=== PATIENT | male | born 1950 | race Caucasian/White ===

== ENCOUNTER 2017-12-18 12:04 | Inpatient (IN) | payer OTHER ==
[~2017-12-18] VITALS: Ht 180.3 cm; Wt 102.6 kg
[~2017-12-18 12:04] MED LIST: ALBUMIN (HUMAN) 25% 50 ML IV ONE; AMINOCAPROIC ACID 250 MG/ML 20 ML VIAL IV ONE; CALCIUM CHLORIDE 100 MG/ML 10 ML SYG IVP ONE; HEPARIN SODIUM 10000 UNIT/ML 1ML VIAL IJ ONE; HEPARIN SODIUM 1000UNIT/ML 10ML VIAL IV ONE; MAGNESIUM SULFATE 1 GM/2 ML VIAL IM ONE; MANNITOL 25% 50ML VIAL IV ONE; PHENYLEPHRINE HCL 10 MG/ML 1ML VIAL IV ONE; SODIUM BICARB 8.4% 50ML SYRINGE IVP ONE
[2017-12-18 13:01] LABS: BASOPHILS % (AUTO) 0.9 % (0.0-5.0); EOSINOPHILS % (AUTO) 3.6 % (0.0-8.0); HEMATOCRIT 44.6 % (42-54); LYMPHOCYTES % (AUTO) 18.2 % (21.0-51.0); MEAN CORPUSCULAR HEMOGLOBIN 29.9 pg (27.0-33.0); MEAN CORPUSCULAR HGB CONC 34.5 g/dL (32.0-36.0); MEAN CORPUSCULAR VOLUME 86.7 fL (79-99); MONOCYTES % (AUTO) 10.7 % (3.0-13.0); NEUTROPHILS % (AUTO) 66.6 % (40.0-77.0); NUCLEATED RED BLOOD CELLS 0.1 % (0.0-0.19); PLATELET COUNT (AUTO) 252 K/uL (130-400); RED BLOOD CELL COUNT(AUTO) 5.15 MIL/uL (4.50-6.20); RED CELL DISTRIBUTION WIDTH 13.2 % (11.0-15.5); WHITE BLOOD COUNT (AUTO) 8.7 K/uL (4.8-10.8)
[2017-12-18 13:11] LABS: CREATININE 1.3 mg/dL (0.5-1.5); POTASSIUM 3.7 mmol/L (3.5-5.1)
[2017-12-18 13:14] LABS: PARTIAL THROMBOPLASTIN TIME 29.5 SEC (26.3-35.5); PROTHROMBIN TIME 10.5 SEC (9.6-11.6)
[2017-12-18] MEDS ORDERED: ASPIRIN 325 MG TABLET ONE (13:18)
[2017-12-18] MEDS ORDERED: SODIUM CHLORIDE 0.9% 500ML 500 ML IV ONE (13:19)
[2017-12-18 13:22] LABS: ALBUMIN 3.7 g/dL (3.5-5.0); BILIRUBIN,TOTAL 1.2 mg/dL (0.2-1.0); TOTAL PROTEIN, SERUM 7.3 g/dL (6.0-8.3)
[2017-12-18] MEDS: SODIUM CHLORIDE 0.9% 1000ML 1,000 ML IV SCH (16:00)
[2017-12-18 17:56] VITALS: BP 122/77
[2017-12-18 18:00] VITALS: BP 122/77
[2017-12-18 19:50] VITALS: BP 121/79
[2017-12-18 23:59] VITALS: BP 129/72
[2017-12-19] VITALS (13 sets, daily range): BP systolic 101–136; BP diastolic 63–89
[2017-12-19 03:36] LABS: BASOPHILS % (AUTO) 0.5 % (0.0-5.0); EOSINOPHILS % (AUTO) 2.9 % (0.0-8.0); HEMATOCRIT 43.6 % (42-54); LYMPHOCYTES % (AUTO) 18.1 % (21.0-51.0); MEAN CORPUSCULAR HEMOGLOBIN 28.9 pg (27.0-33.0); MEAN CORPUSCULAR HGB CONC 33.3 g/dL (32.0-36.0); MEAN CORPUSCULAR VOLUME 86.8 fL (79-99); MONOCYTES % (AUTO) 9.5 % (3.0-13.0); PLATELET COUNT (AUTO) 214 K/uL (130-400); RED BLOOD CELL COUNT(AUTO) 5.02 MIL/uL (4.50-6.20); RED CELL DISTRIBUTION WIDTH 13.2 % (11.0-15.5)
[2017-12-19 03:51] LABS: ALBUMIN 3.3 g/dL (3.5-5.0); BILIRUBIN,TOTAL 1.2 mg/dL (0.2-1.0); CREATININE 1.2 mg/dL (0.5-1.5); TOTAL PROTEIN, SERUM 6.6 g/dL (6.0-8.3)
[2017-12-19] MEDS: SODIUM CHLORIDE 0.9% 1000ML 1,000 ML IV SCH ×2 (06:43→18:40)
[2017-12-19] MEDS: ATORVASTATIN CALCIUM 20 MG TABLET PO SCH (09:00)
[2017-12-19] MEDS: ASPIRIN 81MG TAB.CHEW PO SCH (09:00)
[2017-12-19] MEDS ORDERED: PANTOPRAZOLE SODIUM 40 MG TABLET.DR PO SCH (09:00)
[2017-12-19] MEDS ORDERED: ENOXAPARIN SODIUM 40 MG/0.4 ML SYRINGE SQ SCH (09:00)
[2017-12-19] MEDS ORDERED: LIDOCAINE HCL-MPF 2% 5ML VIAL ONE (11:59)
[2017-12-19] MEDS ORDERED: IOHEXOL-350 50ML VIAL IV ONE (11:59)
[2017-12-19] MEDS ORDERED: IOHEXOL 350 MG/ML 100ML INFUS..BTL IV ONE ×2 (11:59→13:40)
[2017-12-19] MEDS ORDERED: NITROGLYCERIN 5 MG/ML 10 ML VIAL IV ONE (11:59)
[2017-12-19] MEDS ORDERED: BIVALIRUDIN 250 MG/VIAL IV ONE (12:02)
[2017-12-19] MEDS ORDERED: MIDAZOLAM HCL 1 MG/ML 2ML VIAL ONE (12:51)
[2017-12-19] MEDS ORDERED: HEPARIN SODIUM 1000UNIT/ML 10ML VIAL ONE (13:08)
[2017-12-19] MEDS ORDERED: SODIUM CHLORIDE 0.9% 1000ML 1,000 ML IV SCH (13:54)
[2017-12-19] MEDS ORDERED: ACETAMINOPHEN-CODEINE 300/30MG TAB PO PRN ×2 (14:00)
[2017-12-19] MEDS ORDERED: CHOL200013 PO (14:56)
[2017-12-19] MEDS ORDERED: VITA1CAP85 PO (14:56)
[2017-12-19] MEDS ORDERED: TRIA15OI6 TP (14:56)
[2017-12-19] MEDS ORDERED: ATOR10 PO (14:56)
[2017-12-19] MEDS ORDERED: MELO-108 PO (14:56)
[2017-12-19] MEDS ORDERED: DOCU100C33 PO (14:56)
[2017-12-19 18:52] LABS: HEMOGLOBIN A1C 6.5 % (4.0-6.0)
[2017-12-19] MEDS ORDERED: MAGNESIUM HYDROXIDE 30 ML/UDCUP ONE (23:27)
[2017-12-19] MEDS ORDERED: MAGNESIUM HYDROXIDE 30 ML/UDCUP PO PRN (23:30)
[2017-12-20] VITALS (26 sets, daily range): BP systolic 95–179; BP diastolic 52–99
[2017-12-20 03:25] LABS: HEMATOCRIT 43.3 % (42-54); MEAN CORPUSCULAR HEMOGLOBIN 29.7 pg (27.0-33.0); MEAN CORPUSCULAR HGB CONC 34.2 g/dL (32.0-36.0); MEAN CORPUSCULAR VOLUME 86.9 fL (79-99); PLATELET COUNT (AUTO) 233 K/uL (130-400); RED BLOOD CELL COUNT(AUTO) 4.98 MIL/uL (4.50-6.20); RED CELL DISTRIBUTION WIDTH 13.1 % (11.0-15.5); WHITE BLOOD COUNT (AUTO) 9.5 K/uL (4.8-10.8)
[2017-12-20 03:38] LABS: INR 1.02 (0.85-1.15); PARTIAL THROMBOPLASTIN TIME 28.9 SEC (26.3-35.5); PROTHROMBIN TIME 10.7 SEC (9.6-11.6)
[2017-12-20 03:39] LABS: CREATININE 1.2 mg/dL (0.5-1.5); POTASSIUM 3.9 mmol/L (3.5-5.1)
[2017-12-20] MEDS ORDERED: CEFUROXIME SODIUM 1.5 GM VIAL IVP PRN (07:00)
[2017-12-20] MEDS ORDERED: OCTYL 2-CYANOACRYLATE 1 EACH TP ONE (07:03)
[2017-12-20] MEDS ORDERED: BACITRACIN 50,000 UNIT VIAL ONE (07:03)
[2017-12-20] MEDS ORDERED: ROCURONIUM BROMIDE 10MG/1ML 5ML VL ONE (07:06)
[2017-12-20] MEDS ORDERED: NITROGLYCERIN 50 MG/D5% WATER 1 BOT ONE (07:06)
[2017-12-20] MEDS ORDERED: THROMBIN-JMI 5000 UNIT/VIAL TP ONE (07:18)
[2017-12-20] MEDS ORDERED: DELNIDO FORMULA 1 BAG IV ONE (07:19)
[2017-12-20] MEDS ORDERED: POTASSIUM CHLORIDE 20MEQ/100ML 100 ML IV ONE (07:19)
[2017-12-20] MEDS ORDERED: SODIUM BICARB 50MEQ 50ML VIAL ONE ×3 (07:54→12:32)
[2017-12-20] MEDS ORDERED: LIDOCAINE PF 2% 5ML ABBOJECT ONE (07:54)
[2017-12-20] MEDS ORDERED: NOREPINEPHRINE BITARTRATE 1 MG/1 ML ML IV ONE ×2 (07:54→08:53)
[2017-12-20] MEDS ORDERED: AMINOCAPROIC ACID 250 MG/ML 20 ML VIAL IV ONE (07:54)
[2017-12-20] MEDS ORDERED: HEPARIN SODIUM 1000UNIT/ML 10ML VIAL ONE (07:54)
[2017-12-20] MEDS ORDERED: ESMOLOL HCL 10 MG/ML 10 ML VIAL ONE (07:54)
[2017-12-20] MEDS ORDERED: EPINEPHRINE 1 MG/ML AMPULE ONE (07:54)
[2017-12-20] MEDS ORDERED: MIDAZOLAM HCL 1 MG/ML 5ML VIAL ONE (07:55)
[2017-12-20] MEDS ORDERED: NEOSTIGMINE 5MG/5ML SYR IV ONE (07:55)
[2017-12-20] MEDS ORDERED: FENTANYL CITRATE PF 50 MCG/1 ML 20ML VIAL IJ ONE (07:55)
[2017-12-20] MEDS ORDERED: PROPOFOL 10 MG/ML 20ML VIAL IV ONE (07:55)
[2017-12-20] MEDS: SODIUM CHLORIDE 0.9% 1000ML 1,000 ML IV SCH (08:07)
[2017-12-20] MEDS ORDERED: VITA1CAP85 PO (08:16)
[2017-12-20] MEDS ORDERED: ATOR40TA71 PO (08:18)
[2017-12-20] MEDS ORDERED: TRIA80OI15 TP (08:22)
[2017-12-20] MEDS ORDERED: CHOL100034 PO (08:24)
[2017-12-20] MEDS ORDERED: TYL3 PO (08:25)
[2017-12-20] MEDS ORDERED: METHYLPREDNISOLONE SOD SUCC 1,000 MG/8 ML ML IV ONE (08:53)
[2017-12-20] MEDS ORDERED: ROCURONIUM 10MG/1ML SYR 10 MG/ML ML ONE (08:59)
[2017-12-20] MEDS: ASPIRIN 81MG TAB.CHEW PO SCH (09:00)
[2017-12-20] MEDS: ATORVASTATIN CALCIUM 20 MG TABLET PO SCH (09:00)
[2017-12-20 09:05] LABS: ABG BASE EXCESS -2.9 mmol/L (-2.0-3.0); ABG HCO3 22.1 mmol/L (21.0-28.0); ABG PCO2 39 mmHg (35-48)
[2017-12-20] MEDS: AMBU PUMP 1 EACH EACH MISC SCH ×2 (10:15→12:45)
[2017-12-20] MEDS ORDERED: SODIUM CHLORIDE 0.9% 500ML 500 ML IV SCH (11:12)
[2017-12-20] MEDS ORDERED: CALCIUM GLUCONATE 1 GM in SODIUM CHLORIDE 0.9% 50 ML IV PRN (11:15)
[2017-12-20] MEDS ORDERED: NITROGLYCERIN 50 MG/D5% WATER 250 BOT IV SCH (11:15)
[2017-12-20] MEDS ORDERED: SODIUM CHLORIDE 0.9% 250 ML IV PRN (11:15)
[2017-12-20] MEDS ORDERED: TRAMADOL HCL 50 MG TABLET PO PRN (11:15)
[2017-12-20] MEDS ORDERED: SODIUM CHLORIDE 0.9% 1000ML 1,000 ML IV SCH (11:15)
[2017-12-20] MEDS ORDERED: ACETAMINOPHEN 650 MG SUPPOSITORY RC PRN (11:15)
[2017-12-20] MEDS ORDERED: ONDANSETRON HCL 4 MG/2 ML VIAL IV PRN (11:15)
[2017-12-20] MEDS ORDERED: POTASSIUM PHOS 15 mMOL+NS250ML 250 ML IV PRN (11:15)
[2017-12-20] MEDS ORDERED: MORPHINE SULFATE 2 MG/ML 1ML SYG IV PRN (11:15)
[2017-12-20] MEDS ORDERED: GLUCAGON 1MG KIT 1 MG ML IM PRN (11:15)
[2017-12-20] MEDS ORDERED: MAGNESIUM 2GM PREMIX 50ML 50 ML IV PRN (11:15)
[2017-12-20] MEDS ORDERED: AMINOCAPROIC ACID 15,000 MG in SODIUM CHLORIDE 0.9% 250 ML IV SCH (11:15)
[2017-12-20] MEDS ORDERED: NOREPINEPHRINE 4MG/NS 250ML 250 ML IV PRN (11:15)
[2017-12-20] MEDS ORDERED: EPINEPHRINE 8 MG in SODIUM CHLORIDE 0.9% 250 ML IV PRN (11:15)
[2017-12-20] MEDS ORDERED: SODIUM CHLORIDE 0.9% 10 ML VIAL IVP PRN (11:15)
[2017-12-20] MEDS ORDERED: ALBUMIN (HUMAN) 5% 250 ML IV PRN (11:15)
[2017-12-20] MEDS ORDERED: PROPOFOL 1000 MG/100 ML 100 ML IV PRN (11:15)
[2017-12-20] MEDS ORDERED: MORPHINE SULFATE 4 MG/1ML SYG IV PRN (11:15)
[2017-12-20] MEDS ORDERED: DEXTROSE 50%-WATER 50 ML DISP.SYRIN IV PRN (11:15)
[2017-12-20 11:23] LABS: ABG BASE EXCESS 2.4 mmol/L (-2.0-3.0); ABG HCO3 26.8 mmol/L (21.0-28.0); ABG OXYGEN SATURATION 98.7 % (95.0-99.0); ABG PCO2 41 mmHg (35-48)
[2017-12-20 11:51] LABS: ABG BASE EXCESS -5.7 mmol/L (-2.0-3.0); ABG HCO3 20.1 mmol/L (21.0-28.0); ABG OXYGEN SATURATION 98.1 % (95.0-99.0); ABG PCO2 40 mmHg (35-48)
[2017-12-20] MEDS ORDERED: AMIODARONE HCL 50 MG/ML 3 ML VIAL ONE (11:51)
[2017-12-20] MEDS ORDERED: PROTAMINE SULFATE 10 MG/ML 5 ML VIAL ONE ×2 (11:53→12:03)
[2017-12-20] MEDS ORDERED: PROTAMINE SULFATE 10 MG/ML 25ML VIAL IV ONE (11:55)
[2017-12-20] MEDS ORDERED: MAGNESIUM SULFATE 1 GM/2 ML VIAL ONE (11:57)
[2017-12-20 12:31] LABS: ABG BASE EXCESS -6.3 mmol/L (-2.0-3.0); ABG OXYGEN SATURATION 98.8 % (95.0-99.0); ABG PCO2 37 mmHg (35-48)
[2017-12-20] MEDS ORDERED: EPHEDRINE SULFATE 50 MG/ML AMPULE ONE (12:47)
[2017-12-20 13:11] LABS: HEMATOCRIT 40.5 % (42-54); MEAN CORPUSCULAR HEMOGLOBIN 29.9 pg (27.0-33.0); MEAN CORPUSCULAR VOLUME 87.9 fL (79-99); PLATELET COUNT (AUTO) 220 K/uL (130-400); RED BLOOD CELL COUNT(AUTO) 4.61 MIL/uL (4.50-6.20); WHITE BLOOD COUNT (AUTO) 28.7 K/uL (4.8-10.8)
[2017-12-20 13:22] LABS: CREATININE 1.5 mg/dL (0.5-1.5); MAGNESIUM 3.2 mg/dL (1.80-2.40); PHOSPHORUS 4.7 mg/dL (2.5-4.9); POTASSIUM 3.2 mmol/L (3.5-5.1)
[2017-12-20 13:39] LABS: ABG BASE EXCESS -4.8 mmol/L (-2.0-3.0); ABG HCO3 21.9 mmol/L (21.0-28.0); ABG OXYGEN SATURATION 96.7 % (95.0-99.0); ABG PCO2 46 mmHg (35-48)
[2017-12-20] MEDS: POTASSIUM CHLORIDE 20MEQ/100ML 100 ML IV PRN ×5 (14:01→21:00)
[2017-12-20] MEDS: INSULIN REGULAR, HUMAN 3ML 100 UNIT in SODIUM CHLORIDE 0.9% 99 ML IV SCH ×6 (14:02→23:12)
[2017-12-20] MEDS: SODIUM BICARB 50MEQ 50ML VIAL IV PRN ×4 (14:18→19:55)
[2017-12-20 15:32] LABS: ABG BASE EXCESS -4.7 mmol/L (-2.0-3.0); ABG HCO3 20.5 mmol/L (21.0-28.0); ABG OXYGEN SATURATION 97.3 % (95.0-99.0); ABG PCO2 38 mmHg (35-48)
[2017-12-20 17:29] LABS: ABG BASE EXCESS -3.7 mmol/L (-2.0-3.0); ABG HCO3 20.6 mmol/L (21.0-28.0); ABG OXYGEN SATURATION 97.8 % (95.0-99.0); ABG PCO2 35 mmHg (35-48)
[2017-12-20 19:06] LABS: ABG BASE EXCESS -4.1 mmol/L (-2.0-3.0); ABG HCO3 20.4 mmol/L (21.0-28.0); ABG OXYGEN SATURATION 97.5 % (95.0-99.0); ABG PCO2 36 mmHg (35-48)
[2017-12-20 20:39] LABS: ABG BASE EXCESS 1.3 mmol/L (-2.0-3.0); ABG HCO3 25.6 mmol/L (21.0-28.0); ABG OXYGEN SATURATION 96.8 % (95.0-99.0); ABG PCO2 40 mmHg (35-48)
[2017-12-20] MEDS: CEFUROXIME SODIUM 1.5 GM VIAL IVP SCH (20:40)
[2017-12-20] MEDS: ACETAMINOPHEN 325 MG TAB PO PRN (22:32)
[2017-12-20 23:54] LABS: CREATININE 1.9 mg/dL (0.5-1.5); POTASSIUM 3.3 mmol/L (3.5-5.1)
[2017-12-21] VITALS (24 sets, daily range): BP systolic 102–155; BP diastolic 51–84
[2017-12-21] MEDS: POTASSIUM CHLORIDE 20MEQ/100ML 100 ML IV PRN ×4 (00:10→05:10)
[2017-12-21] MEDS: ACETAMINOPHEN 325 MG TAB PO PRN ×2 (03:43→08:39)
[2017-12-21 04:13] LABS: HEMATOCRIT 39.2 % (42-54); MEAN CORPUSCULAR HEMOGLOBIN 29.5 pg (27.0-33.0); MEAN CORPUSCULAR HGB CONC 34.1 g/dL (32.0-36.0); MEAN CORPUSCULAR VOLUME 86.5 fL (79-99); PLATELET COUNT (AUTO) 160 K/uL (130-400); RED BLOOD CELL COUNT(AUTO) 4.54 MIL/uL (4.50-6.20); RED CELL DISTRIBUTION WIDTH 13.5 % (11.0-15.5); WHITE BLOOD COUNT (AUTO) 21.2 K/uL (4.8-10.8)
[2017-12-21 04:26] LABS: INR 1.12 (0.85-1.15); PARTIAL THROMBOPLASTIN TIME 26.7 SEC (26.3-35.5); PROTHROMBIN TIME 11.7 SEC (9.6-11.6)
[2017-12-21 04:28] LABS: CREATININE 1.6 mg/dL (0.5-1.5); MAGNESIUM 2.2 mg/dL (1.80-2.40); PHOSPHORUS 2.2 mg/dL (2.5-4.9); POTASSIUM 3.7 mmol/L (3.5-5.1)
[2017-12-21] MEDS: TRAMADOL HCL 50 MG TABLET PO PRN ×2 (05:03)
[2017-12-21] MEDS: PANTOPRAZOLE SODIUM 40 MG TABLET.DR PO SCH (08:39)
[2017-12-21] MEDS: ASPIRIN 81MG TAB.CHEW PO SCH (08:39)
[2017-12-21] MEDS: ATORVASTATIN CALCIUM 20 MG TABLET PO SCH (08:40)
[2017-12-21] MEDS: CEFUROXIME SODIUM 1.5 GM VIAL IVP SCH ×2 (08:40→20:28)
[2017-12-21] MEDS: AMBU PUMP 1 EACH EACH MISC SCH (10:15)
[2017-12-21] MEDS ORDERED: ACET1TAB15 PO (17:51)
[2017-12-21] MEDS: FUROSEMIDE 20 MG TABLET PO SCH (17:57)
[2017-12-21] MEDS ORDERED: ACETAMINOPHEN WITH CODEINE PO PRN (18:00)
[2017-12-21] MEDS: DEXTROSE 5%-WATER 1,000 ML IV SCH (18:02)
[2017-12-21 18:12] LABS: MAGNESIUM 2.1 mg/dL (1.80-2.40); PHOSPHORUS 3.9 mg/dL (2.5-4.9); POTASSIUM 4.6 mmol/L (3.5-5.1)
[2017-12-21] MEDS: ACETAMINOPHEN-CODEINE 300/30MG TAB PO PRN (20:27)
[2017-12-22] VITALS (13 sets, daily range): BP systolic 110–150; BP diastolic 59–85
[2017-12-22 05:31] LABS: BASOPHILS % (AUTO) 0.1 % (0.0-5.0); HEMATOCRIT 34.4 % (42-54); LYMPHOCYTES % (AUTO) 3.5 % (21.0-51.0); MEAN CORPUSCULAR HEMOGLOBIN 29.8 pg (27.0-33.0); MEAN CORPUSCULAR HGB CONC 33.7 g/dL (32.0-36.0); MEAN CORPUSCULAR VOLUME 88.2 fL (79-99); MONOCYTES % (AUTO) 5.7 % (3.0-13.0); NEUTROPHILS % (AUTO) 90.7 % (40.0-77.0); PLATELET COUNT (AUTO) 102 K/uL (130-400); RED CELL DISTRIBUTION WIDTH 13.5 % (11.0-15.5); WHITE BLOOD COUNT (AUTO) 28.2 K/uL (4.8-10.8)
[2017-12-22 05:37] LABS: CREATININE 1.2 mg/dL (0.5-1.5); MAGNESIUM 2.2 mg/dL (1.80-2.40); POTASSIUM 4.5 mmol/L (3.5-5.1)
[2017-12-22] MEDS: PANTOPRAZOLE SODIUM 40 MG TABLET.DR PO SCH (09:10)
[2017-12-22] MEDS: ACETAMINOPHEN-CODEINE 300/30MG TAB PO PRN ×2 (09:11→16:55)
[2017-12-22] MEDS: ATORVASTATIN CALCIUM 20 MG TABLET PO SCH (09:11)
[2017-12-22] MEDS: FUROSEMIDE 20 MG TABLET PO SCH (09:11)
[2017-12-22] MEDS: DOCUSATE SODIUM 100 MG CAP PO SCH ×2 (09:11→22:06)
[2017-12-22] MEDS: ASPIRIN 81MG TAB.CHEW PO SCH (09:11)
[2017-12-22] MEDS: AMBU PUMP 1 EACH EACH MISC SCH (10:15)
[2017-12-22] MEDS: DEXTROSE 5%-WATER 1,000 ML IV SCH (11:34)
[2017-12-22 16:51] LABS: CREATININE 1.1 mg/dL (0.5-1.5); POTASSIUM 4.2 mmol/L (3.5-5.1)
[2017-12-22] MEDS: GUAIFENESIN-DM 200/20 MG 10 ML PO SCH ×2 (16:55→22:08)
[2017-12-22] MEDS: METOPROLOL TARTRATE 25 MG TAB PO SCH (22:06)
[2017-12-23 03:25] VITALS: BP 136/72
[2017-12-23 03:37] LABS: HEMATOCRIT 35.1 % (42-54); MEAN CORPUSCULAR HGB CONC 33.4 g/dL (32.0-36.0); MEAN CORPUSCULAR VOLUME 86.7 fL (79-99); PLATELET COUNT (AUTO) 85 K/uL (130-400); RED BLOOD CELL COUNT(AUTO) 4.05 MIL/uL (4.50-6.20); RED CELL DISTRIBUTION WIDTH 12.9 % (11.0-15.5); WHITE BLOOD COUNT (AUTO) 19.1 K/uL (4.8-10.8)
[2017-12-23 03:48] LABS: CREATININE 1.1 mg/dL (0.5-1.5); POTASSIUM 4.1 mmol/L (3.5-5.1)
[2017-12-23] MEDS: GUAIFENESIN-DM 200/20 MG 10 ML PO SCH ×4 (04:29→21:22)
[2017-12-23 07:37] LABS: APPEARANCE,URINE Clear (CLEAR); BILIRUBIN,URINE Negative (NEGATIVE); COLOR,URINE Yellow (YELLOW); GLUCOSE, URINE (UA) Negative (NEGATIVE); KETONES,URINE Negative (NEGATIVE); LEUKOCYTE ESTERASE ,URINE Negative (NEGATIVE); NITRATE,URINE Negative (NEGATIVE); OCCULT BLOOD,URINE Small (NEGATIVE); PH,URINE >=9.0 (5.0-8.0); PROTEIN,URINE Negative (NEGATIVE)
[2017-12-23 07:44] LABS: BACTERIA,URINE None Seen /HPF (None Seen); RBC,URINE 0-1 /HPF (0-1); SQUAMOUS EPITHELIAL CELL,UR None Seen /HPF (0-2); WBC,URINE None Seen /HPF (0-1)
[2017-12-23 07:46] VITALS: BP 138/88
[2017-12-23] MEDS: PANTOPRAZOLE SODIUM 40 MG TABLET.DR PO SCH (08:44)
[2017-12-23] MEDS: ATORVASTATIN CALCIUM 20 MG TABLET PO SCH (08:44)
[2017-12-23] MEDS: METOPROLOL TARTRATE 25 MG TAB PO SCH ×2 (08:44→21:22)
[2017-12-23] MEDS: FUROSEMIDE 20 MG TABLET PO SCH (08:44)
[2017-12-23] MEDS: DOCUSATE SODIUM 100 MG CAP PO SCH ×3 (08:44→21:22)
[2017-12-23] MEDS: ASPIRIN 81MG TAB.CHEW PO SCH (08:44)
[2017-12-23] MEDS: POTASSIUM CHLORIDE 20 MEQ ERTAB PO SCH (08:44)
[2017-12-23] MEDS: ACETAMINOPHEN-CODEINE 300/30MG TAB PO PRN ×3 (08:45→23:21)
[2017-12-23] MEDS ORDERED: CHLORDIAZEPOXIDE HCL 25 MG CAP PO SCH (10:15)
[2017-12-23] MEDS ORDERED: LORAZEPAM 2 MG/ML 1 ML VIAL IVP PRN (10:15)
[2017-12-23] MEDS: AMBU PUMP 1 EACH EACH MISC SCH (10:15)
[2017-12-23] MEDS ORDERED: ALPRAZOLAM 0.25 MG TABLET PO PRN (10:15)
[2017-12-23] MEDS: IPRATROPIUM/ALBUTEROL SULFATE 3 ML SOLUTION IH PRN ×2 (11:32→18:54)
[2017-12-23 11:40] VITALS: BP 108/64
[2017-12-23] MEDS: POLYETHYLENE GLYCOL 3350 17 GM POWD.PACK PO PRN (11:45)
[2017-12-23 16:34] VITALS: BP 133/67
[2017-12-23 19:38] VITALS: BP 130/70
[2017-12-23 23:39] VITALS: BP 154/93
[2017-12-24] MEDS: IPRATROPIUM/ALBUTEROL SULFATE 3 ML SOLUTION IH PRN ×2 (01:27→06:18)
[2017-12-24 04:03] VITALS: BP 128/79
[2017-12-24 04:31] LABS: BASOPHILS % (AUTO) 0.2 % (0.0-5.0); EOSINOPHILS % (AUTO) 1.3 % (0.0-8.0); HEMATOCRIT 37.3 % (42-54); LYMPHOCYTES % (AUTO) 14.2 % (21.0-51.0); MEAN CORPUSCULAR HEMOGLOBIN 30.1 pg (27.0-33.0); MEAN CORPUSCULAR HGB CONC 34.6 g/dL (32.0-36.0); MONOCYTES % (AUTO) 8.1 % (3.0-13.0); NEUTROPHILS % (AUTO) 76.2 % (40.0-77.0); PLATELET COUNT (AUTO) 111 K/uL (130-400); RED BLOOD CELL COUNT(AUTO) 4.28 MIL/uL (4.50-6.20); WHITE BLOOD COUNT (AUTO) 14.1 K/uL (4.8-10.8)
[2017-12-24 04:41] LABS: ALBUMIN 3.2 g/dL (3.5-5.0); BILIRUBIN,TOTAL 1.1 mg/dL (0.2-1.0); CREATININE 1.1 mg/dL (0.5-1.5); POTASSIUM 4.2 mmol/L (3.5-5.1); TOTAL PROTEIN, SERUM 6.9 g/dL (6.0-8.3)
[2017-12-24] MEDS: GUAIFENESIN-DM 200/20 MG 10 ML PO SCH ×3 (05:17→16:29)
[2017-12-24] MEDS: ACETAMINOPHEN-CODEINE 300/30MG TAB PO PRN ×2 (05:18→13:51)
[2017-12-24 07:35] VITALS: BP 112/49
[2017-12-24] MEDS: DOCUSATE SODIUM 100 MG CAP PO SCH ×2 (07:48→08:56)
[2017-12-24] MEDS: AMBU PUMP 1 EACH EACH MISC SCH (07:49)
[2017-12-24] MEDS: ATORVASTATIN CALCIUM 20 MG TABLET PO SCH (08:55)
[2017-12-24] MEDS: ASPIRIN 81MG TAB.CHEW PO SCH (08:55)
[2017-12-24] MEDS: METOPROLOL TARTRATE 25 MG TAB PO SCH (08:56)
[2017-12-24] MEDS: POTASSIUM CHLORIDE 20 MEQ ERTAB PO SCH (08:56)
[2017-12-24] MEDS: PANTOPRAZOLE SODIUM 40 MG TABLET.DR PO SCH (08:56)
[2017-12-24] MEDS: FUROSEMIDE 20 MG TABLET PO SCH (08:56)
[2017-12-24] MEDS ORDERED: FOLIC ACID 1 MG TABLET PO SCH (09:00)
[2017-12-24 11:20] VITALS: BP 128/75
[2017-12-24] MEDS: POLYETHYLENE GLYCOL 3350 17 GM POWD.PACK PO PRN (14:50)
[2017-12-24 16:38] VITALS: BP 124/72
[2017-12-24] MEDS ORDERED: PANT40TA PO (17:40)
[2017-12-24] MEDS ORDERED: FOLI1TAB15 PO (17:40)
[2017-12-24] MEDS ORDERED: FURO20TA6 PO (17:40)
[2017-12-24] MEDS ORDERED: METO25 PO (17:40)
[2017-12-24] MEDS ORDERED: DOCU-275 PO (17:40)
[2017-12-24] MEDS ORDERED: POTA20TA12 PO (17:40)
[2017-12-24] MEDS ORDERED: TRAM50TA4 PO (17:42)
== END 2017-12-24 18:35 | disposition home or self-care (01) | DRG 217 ==
LOC: EDH 12:04 → EDHIP 16:00 → 2BH 17:18 → 2CV 12-20 07:53 → 2CH 12-21 06:17 → 2AH 12-22 14:36
PROVIDERS: ADMIT Hospitalist; ATTEND Hospitalist
PROC: 4A023N8 Measurement of Cardiac Sampling and Pressure, Bilateral, Percutaneous Approach (ICD-10-PCS; 2017-12-19)
PROC: B2111ZZ Fluoroscopy of Multiple Coronary Arteries using Low Osmolar Contrast (ICD-10-PCS; 2017-12-19)
PROC: B2151ZZ Fluoroscopy of Left Heart using Low Osmolar Contrast (ICD-10-PCS; 2017-12-19)
PROC: 3E073KZ Introduction of Other Diagnostic Substance into Coronary Artery, Percutaneous Approach (ICD-10-PCS; 2017-12-19)
PROC: B24BZZ4 Ultrasonography of Heart with Aorta, Transesophageal (ICD-10-PCS; 2017-12-19)
PROC: 5A1221Z Performance of Cardiac Output, Continuous (ICD-10-PCS; 2017-12-19)
PROC: 02RF08Z Replacement of Aortic Valve with Zooplastic Tissue, Open Approach (ICD-10-PCS; principal; 2017-12-20 08:40)
DX: I35.0 Nonrheumatic aortic (valve) stenosis (principal); E87.0 Hyperosmolality and hypernatremia; D62 Acute posthemorrhagic anemia; J98.11 Atelectasis; R65.10 Systemic inflammatory response syndrome (SIRS) of non-infectious origin without acute organ dysfunction; E11.9 Type 2 diabetes mellitus without complications; E78.5 Hyperlipidemia, unspecified; I10 Essential (primary) hypertension; I25.10 Atherosclerotic heart disease of native coronary artery without angina pectoris; D69.6 Thrombocytopenia, unspecified; D72.829 Elevated white blood cell count, unspecified; E66.9 Obesity, unspecified; E83.51 Hypocalcemia; G47.30 Sleep apnea, unspecified; K59.00 Constipation, unspecified; I25.2 Old myocardial infarction; Z79.82 Long term (current) use of aspirin; Z79.899 Other long term (current) drug therapy; Z87.891 Personal history of nicotine dependence; Z68.31 Body mass index [BMI] 31.0-31.9, adult; Z91.018 Allergy to other foods
CPT/HCPCS: 36415; 71045; 76882; 76998; 80048; 80053; 80061; 81001; 82435; 82550; 82607; 82803; 82947; 82948; 83036; 83605; 83690; 83735; 83874; 84100; 84132; 84295; 84484; 85018; 85025; 85027; 85347; 85610; 85730; 86850; 86900; 86901; 86922; 87088; 88305; 88311; 93005; 93306; 93460; 93880; 93926; 94002; 94010; 94640; 94664; 97039; 99156; 99157; A4218; A7048; C1769; C1893; C1894; J0171; J0282; J0583; J0610; J0697; J1644; J1650; J1815; J2001; J2150; J2250; J2370; J2405; J2704; J2710; J2720; J2930; J3010; J3475; J3480; J3490; J7030; J7040; P9047; Q9967

== ENCOUNTER 2018-02-02 14:35 | Emergency (ER) | payer OTHER ==
[~2018-02-02 14:35] MED LIST changes: -ALBUMIN (HUMAN) 25% 50 ML IV ONE; -AMINOCAPROIC ACID 250 MG/ML 20 ML VIAL IV ONE; +ATOR40TA71 PO; -CALCIUM CHLORIDE 100 MG/ML 10 ML SYG IVP ONE; +CHOL100034 PO; +CHOL200013 PO; +DOCU-275 PO; +DOCU100C33 PO; +FOLI1TAB15 PO; +FURO20TA6 PO; -HEPARIN SODIUM 10000 UNIT/ML 1ML VIAL IJ ONE; -HEPARIN SODIUM 1000UNIT/ML 10ML VIAL IV ONE; -MAGNESIUM SULFATE 1 GM/2 ML VIAL IM ONE; -MANNITOL 25% 50ML VIAL IV ONE; +METO25 PO; +PANT40TA PO; -PHENYLEPHRINE HCL 10 MG/ML 1ML VIAL IV ONE; +POTA20TA12 PO; -SODIUM BICARB 8.4% 50ML SYRINGE IVP ONE; +TRAM50TA4 PO; +TRIA80OI15 TP; +VITA1CAP85 PO
[2018-02-02] MEDS ORDERED: ASPIRIN 325 MG TABLET ONE (14:50)
[2018-02-02 14:54] LABS: BASOPHILS % (AUTO) 0.8 % (0.0-5.0); EOSINOPHILS % (AUTO) 3.5 % (0.0-8.0); HEMATOCRIT 44.1 % (42-54); LYMPHOCYTES % (AUTO) 12.5 % (21.0-51.0); MEAN CORPUSCULAR HEMOGLOBIN 29.2 pg (27.0-33.0); MEAN CORPUSCULAR HGB CONC 33.9 g/dL (32.0-36.0); MEAN CORPUSCULAR VOLUME 86.1 fL (79-99); MONOCYTES % (AUTO) 11.9 % (3.0-13.0); NEUTROPHILS % (AUTO) 71.3 % (40.0-77.0); PLATELET COUNT (AUTO) 210 K/uL (130-400); RED BLOOD CELL COUNT(AUTO) 5.12 MIL/uL (4.50-6.20); RED CELL DISTRIBUTION WIDTH 14.2 % (11.0-15.5); WHITE BLOOD COUNT (AUTO) 11.3 K/uL (4.8-10.8)
[2018-02-02 15:04] LABS: CREATININE 1.3 mg/dL (0.5-1.5); POTASSIUM 4.1 mmol/L (3.5-5.1)
[2018-02-02 15:08] LABS: INR 0.98 (0.85-1.15); PARTIAL THROMBOPLASTIN TIME 28.8 SEC (26.3-35.5); PROTHROMBIN TIME 10.3 SEC (9.6-11.6)
[2018-02-02 15:15] LABS: ALBUMIN 4.1 g/dL (3.5-5.0); BILIRUBIN,TOTAL 2.4 mg/dL (0.2-1.0); TOTAL PROTEIN, SERUM 8.2 g/dL (6.0-8.3)
[2018-02-02] MEDS ORDERED: IOHEXOL 350 MG/ML 100ML INFUS..BTL IV ONE (15:38)
== END 2018-02-02 20:23 | disposition home or self-care (01) ==
LOC: EDH 14:35
DX: I31.3 Pericardial effusion (noninflammatory) (principal); M79.81 Nontraumatic hematoma of soft tissue; E78.5 Hyperlipidemia, unspecified; I10 Essential (primary) hypertension; Z98.890 Other specified postprocedural states; Z87.891 Personal history of nicotine dependence
CPT/HCPCS: 36415; 71045; 71275; 76882; 80053; 82550; 83874; 83880; 84484; 85025; 85610; 85730; 93005; 94761; 99285; Q9967

== ENCOUNTER → 2018-04-09 | Outpatient (CLI) | payer OTHER | END | disposition home or self-care (01) | LOC: RAH 14:23 | PROVIDERS: ATTEND Internal Medicine Cardiovascular Disease | DX: S80.11XA Contusion of right lower leg, initial encounter (principal); X58.XXXA Exposure to other specified factors, initial encounter; Y93.89 Activity, other specified; Y92.89 Other specified places as the place of occurrence of the external cause; Y99.8 Other external cause status | CPT/HCPCS: 76882 ==